=== PATIENT | male | born 1940 | race Caucasian/White ===

== ENCOUNTER 2019-02-03 16:14 | Inpatient (IN) | payer BC, MEDICARE ==
[~2019-02-03] VITALS: Ht 182.9 cm; Wt 85.7 kg
[~2019-02-03 16:14] MED LIST: ALPR1TAB2 PO; ASPI-1159 PO; CLOP75TA33 PO; COR3 PO; LOSA25TA12 PO; METO-396 PO; PRAV20TA57 PO; SPIR25TA6 PO; TAMS0.4C31 PO
[2019-02-03] MEDS ORDERED: SODIUM CHLORIDE 0.9% 1,000 ML IV ONE ×2 (18:19→20:00)
[2019-02-03 18:52] LABS: BASOPHILS % 0.2 % (0.0-2.0); EOSINOPHILS % 0.1 % (0.0-5.0); HEMATOCRIT. 41.9 % (42.0-52.0); LYMPHOCYTES % 8.9 % (20.0-50.0); MEAN CORPUSCULAR HEMOGLOBIN 31.8 pg (28.0-32.0); MEAN CORPUSCULAR VOLUME 94.8 fL (80.0-94.0); MEAN PLATELET VOLUME 8.8 fl (7.4-10.4); MONOCYTES % 6.2 % (2.0-8.0); NEUTROPHILS % 84.6 % (40.0-76.0); PLATELET 151 x1000/uL (130-400); RED BLOOD CELL COUNT 4.41 mill/uL (4.7-6.1); RED CELL DISTRIBUTION WIDTH 14.6 % (11.6-14.6)
[2019-02-03 18:55] LABS: CHLORIDE 107 mEq/L (98-107)
[2019-02-03 18:56] LABS: INR 1.2; PROTHROMBIN TIME 12.2 sec (9.1-11.1)
[2019-02-03 18:59] LABS: ETHANOL BLOOD < 10 mg/dL
[2019-02-03] MEDS ORDERED: APIXABAN 5 MG TABLET PO ONE (20:00)
[2019-02-03 20:50] LABS: CLARITY URINE CLEAR (CLEAR); COLOR URINE YELLOW (YELLOW); KETONES URINE NEGATIVE (NEGATIVE); LEUKOCYTE ESTERASE URINE NEGATIVE (NEGATIVE); NITRITE URINE NEGATIVE (NEGATIVE); OCCULT BLOOD URINE NEGATIVE (NEGATIVE); PROTEIN URINE TRACE (NEGATIVE); SPECIFIC GRAVITY URINE 1.016 (1.005-1.030)
[2019-02-03 20:54] LABS: *AMPHETAMINES SCREEN URINE NEGATIVE (NEGATIVE); *BARBITURATES SCREEN URINE NEGATIVE (NEGATIVE); *BENZODIAZEPINES SCREEN URINE PRESUMTIVE POSITIVE (NEGATIVE); *COCAINE SCREEN URINE NEGATIVE (NEGATIVE); METHADONE URINE SCREEN NEGATIVE (NEGATIVE)
[2019-02-03 20:55] LABS: CANNABINOID URINE SCREEN NEGATIVE (NEGATIVE); OPIATES URINE SCREEN NEGATIVE (NEGATIVE); PHENCYCLIDINE URINE SCREEN NEGATIVE (NEGATIVE)
[2019-02-03] MEDS ORDERED: ALPRAZOLAM 0.5 MG TABLET PO ONE (23:15)
[2019-02-04 08:20] VITALS: BP 105/69
[2019-02-04 12:00] VITALS: BP 91/59
[2019-02-04 16:00] VITALS: BP 90/57
[2019-02-04] MEDS ORDERED: MAGNESIUM/ALUMINUM HYDROXIDE/SIMETHICONE 30ML UDC PO PRN (17:15)
[2019-02-04] MEDS ORDERED: ONDANSETRON HCL 4MG/2ML INJ IV PRN (17:15)
[2019-02-04] MEDS ORDERED: IPRATROPIUM/ALBUTEROL 0.5-3(2.5)MG/3ML NEB INH PRN (17:15)
[2019-02-04] MEDS ORDERED: GUAIFENESIN 200MG/10ML SUGAR FREE UDC PO PRN (17:15)
[2019-02-04] MEDS ORDERED: ACETAMINOPHEN 325MG TABLET PO PRN (17:15)
[2019-02-04] MEDS ORDERED: DIPHENHYDRAMINE 50MG/ML VIAL IV PRN (17:15)
[2019-02-04] MEDS ORDERED: CLONIDINE 0.1MG TABLET PO PRN (17:15)
[2019-02-04] MEDS ORDERED: ENOXAPARIN 40MG/0.4ML SYR SUBCUT SCH (18:00)
[2019-02-04] MEDS ORDERED: APIX5TAB PO (18:43)
[2019-02-04] MEDS ORDERED: [UNRECOGNIZED DRUG - CODE] PO (18:43)
[2019-02-04] MEDS ORDERED: ALPRAZOLAM 0.5 MG TABLET PO PRN (18:45)
[2019-02-04 20:00] VITALS: BP 133/70
[2019-02-04] MEDS ORDERED: ATORVASTATIN CALCIUM 20MG TABLET PO SCH (21:00)
[2019-02-04] MEDS: SODIUM CHLORIDE 0.9% INJ 3ML FLUSH IVF SCH (21:30)
[2019-02-05] VITALS: BP 119/68
[2019-02-05 04:00] VITALS: BP 105/67
[2019-02-05] MEDS: SODIUM CHLORIDE 0.9% INJ 3ML FLUSH IVF SCH (05:15)
[2019-02-05 05:47] LABS: BASOPHILS % 0.5 % (0.0-2.0); EOSINOPHILS % 2.6 % (0.0-5.0); HEMATOCRIT. 35.7 % (42.0-52.0); LYMPHOCYTES % 31.8 % (20.0-50.0); MEAN CORPUSCULAR HEMOGLOBIN 32.1 pg (28.0-32.0); MEAN CORPUSCULAR VOLUME 95.5 fL (80.0-94.0); MEAN PLATELET VOLUME 9.1 fl (7.4-10.4); MONOCYTES % 11.8 % (2.0-8.0); NEUTROPHILS % 53.3 % (40.0-76.0); PLATELET 136 x1000/uL (130-400); RED BLOOD CELL COUNT 3.74 mill/uL (4.7-6.1); RED CELL DISTRIBUTION WIDTH 14.7 % (11.6-14.6)
[2019-02-05 05:59] LABS: CHLORIDE 110 mEq/L (98-107)
[2019-02-05 08:00] VITALS: BP 112/71
[2019-02-05] MEDS ORDERED: TAMSULOSIN HCL 0.4MG SR CAPSULE PO SCH (09:00)
[2019-02-05] MEDS ORDERED: CLOPIDOGREL 75MG TABLET PO SCH (09:00)
[2019-02-05] MEDS ORDERED: ASPIRIN 81MG EC TABLET PO SCH (09:00)
[2019-02-05] MEDS ORDERED: POTASSIUM CHLORIDE 20MEQ TABLET SR PO SCH ×2 (09:30→12:00)
[2019-02-05] MEDS ORDERED: LOSARTAN POTASSIUM 25 MG TABLET PO SCH (10:05)
[2019-02-05] MEDS ORDERED: METOPROLOL TARTRATE 25MG TABLET PO SCH (10:07)
[2019-02-05] MEDS ORDERED: SPIRONOLACTONE 25MG TABLET PO SCH (10:09)
[2019-02-05] MEDS ORDERED: APIXABAN 5 MG TABLET PO SCH (10:27)
[2019-02-05 12:40] VITALS: BP 112/71
[2019-02-05] MEDS ORDERED: LOSARTAN POTASSIUM PO SCH (17:00)
[2019-02-05] MEDS ORDERED: MEDICATION NOT ON FORMULARY EA (Apixaban (Eliquis) 5 MG) PO SCH (17:00)
[2019-02-05] MEDS ORDERED: ATORVASTATIN CALCIUM 10MG TABLET PO SCH (21:00)
[2019-02-05] MEDS ORDERED: ALPRAZOLAM PO SCH (21:00)
[2019-02-06] MEDS ORDERED: SPIRONOLACTONE PO SCH (09:00)
[2019-02-06] MEDS ORDERED: PRAVASTATIN SODIUM PO SCH (09:00)
[2019-02-06] MEDS ORDERED: MEDICATION NOT ON FORMULARY EA (Metoprolol Succinate 1 TAB) PO SCH (09:00)
== END 2019-02-05 14:58 | disposition home or self-care (01) | DRG 74 ==
LOC: ER 16:14 → 7WST 20:02 → EDBEDREQ 20:11 → ENRESERV 02-04 07:25
PROVIDERS: ADMIT Internal Medicine; ATTEND Internal Medicine
DX: G90.8 Other disorders of autonomic nervous system (principal); E78.00 Pure hypercholesterolemia, unspecified; E78.5 Hyperlipidemia, unspecified; I25.5 Ischemic cardiomyopathy; I25.10 Atherosclerotic heart disease of native coronary artery without angina pectoris; I95.9 Hypotension, unspecified; Z95.810 Presence of automatic (implantable) cardiac defibrillator; R73.03 Prediabetes; E87.6 Hypokalemia; N40.0 Benign prostatic hyperplasia without lower urinary tract symptoms; G89.29 Other chronic pain; M54.9 Dorsalgia, unspecified; F17.200 Nicotine dependence, unspecified, uncomplicated; F41.9 Anxiety disorder, unspecified; I11.9 Hypertensive heart disease without heart failure; I25.2 Old myocardial infarction; Z79.01 Long term (current) use of anticoagulants; Z79.02 Long term (current) use of antithrombotics/antiplatelets; Z79.82 Long term (current) use of aspirin; Z79.899 Other long term (current) drug therapy; Z80.9 Family history of malignant neoplasm, unspecified; Z82.3 Family history of stroke; Z87.442 Personal history of urinary calculi; Z95.1 Presence of aortocoronary bypass graft
CPT/HCPCS: 36415; 71045; 80048; 80305; 80320; 83036; 84484; 93005; 93306; 96360; 96361; 99291; J1650; J7030; G0480

== ENCOUNTER 2019-07-27 22:01 | Emergency (ER) | payer BC ==
[~2019-07-27] VITALS: Ht 175.3 cm; Wt 75.0 kg
[~2019-07-27 22:01] MED LIST changes: +APIX5TAB PO; -ASPI-1159 PO; -CLOP75TA33 PO; -COR3 PO; -LOSA25TA12 PO; +LOSA25TA26 PO; -TAMS0.4C31 PO; +[UNRECOGNIZED DRUG - CODE] PO
[2019-07-27] MEDS ORDERED: SODIUM CHLORIDE 0.9% 1,000 ML IV ONE (22:34)
[2019-07-27] MEDS ORDERED: LEVETIRACETAM 500MG PREMIX 100 ML IV ONE (22:45)
[2019-07-27 23:06] LABS: BASOPHILS % 0.4 % (0.0-2.0); EOSINOPHILS % 1.4 % (0.0-5.0); HEMATOCRIT. 42.8 % (42.0-52.0); HEMOGLOBIN. 14.3 g/dL (14.0-18.0); LYMPHOCYTES % 8.8 % (20.0-50.0); MEAN CORPUSCULAR HEMOGLOBIN 32.1 pg (28.0-32.0); MEAN CORPUSCULAR VOLUME 95.8 fL (80.0-94.0); MEAN PLATELET VOLUME 8.5 fl (7.4-10.4); MONOCYTES % 7.7 % (2.0-8.0); NEUTROPHILS % 81.7 % (40.0-76.0); PLATELET 176 x1000/uL (130-400); RED BLOOD CELL COUNT 4.47 mill/uL (4.7-6.1); RED CELL DISTRIBUTION WIDTH 13.9 % (11.6-14.6)
[2019-07-27 23:10] LABS: CHLORIDE 105 mEq/L (98-107)
[2019-07-28 01:07] VITALS: BP 133/67
== END 2019-07-28 01:55 | disposition home or self-care (01) ==
LOC: ER 22:01
DX: R56.9 Unspecified convulsions (principal); I11.9 Hypertensive heart disease without heart failure; Z95.0 Presence of cardiac pacemaker
CPT/HCPCS: 36415; 70450; 80053; 85025; 96365; 99284; J1953; J7030

== ENCOUNTER 2022-08-22 11:38 | Inpatient (IN) | payer MEDICARE, MEDICAID ==
[~2022-08-22] VITALS: Ht 182.9 cm; Wt 70.8 kg
[2022-08-22 12:32] LABS: BASOPHILS % 0.4 % (0.0-2.0); EOSINOPHILS % 0.5 % (0.0-5.0); HEMATOCRIT. 43.3 % (42.0-52.0); HEMOGLOBIN. 14.5 g/dL (14.0-18.0); LYMPHOCYTES % 16.9 % (20.0-50.0); MEAN CORPUSCULAR HEMOGLOBIN 31.9 pg (28.0-32.0); MEAN CORPUSCULAR VOLUME 95.1 fL (80.0-94.0); MEAN PLATELET VOLUME 9.4 fl (7.4-10.4); MONOCYTES % 8.6 % (2.0-8.0); NEUTROPHILS % 73.6 % (40.0-76.0); PLATELET 180 x1000/uL (130-400); RED BLOOD CELL COUNT 4.56 mill/uL (4.7-6.1); RED CELL DISTRIBUTION WIDTH 14.9 % (11.6-14.6)
[2022-08-22 12:38] LABS: CHLORIDE 102 mEq/L (98-107)
[2022-08-22 12:54] LABS: ETHANOL BLOOD < 10 mg/dL
[2022-08-22] MEDS ORDERED: LEVETIRACETAM 1000MG PREMIX 100 ML IV ONE (13:00)
[2022-08-22] MEDS ORDERED: CEFTRIAXONE 1 G PREMIX 50 ML IV ONE (14:45)
[2022-08-22] MEDS ORDERED: AZITHROMYCIN 500MG/250ML 250 ML IV ONE (14:45)
[2022-08-22 21:26] LABS: CLARITY URINE CLEAR (CLEAR); COLOR URINE YELLOW (YELLOW); KETONES URINE TRACE (NEGATIVE); LEUKOCYTE ESTERASE URINE NEGATIVE (NEGATIVE); NITRITE URINE NEGATIVE (NEGATIVE); OCCULT BLOOD URINE NEGATIVE (NEGATIVE); PROTEIN URINE 1+ (NEGATIVE); UROBILINOGEN URINE 0.2 E.U./dL (0.2-1.0)
[2022-08-22 23:00] VITALS: BP 94/49
[2022-08-23] VITALS: BP 91/48
[2022-08-23] MEDS ORDERED: TAMS-11 PO (00:17)
[2022-08-23] MEDS ORDERED: TRAZ-251 PO (00:17)
[2022-08-23] MEDS ORDERED: MIRT-89 PO (00:17)
[2022-08-23 04:29] VITALS: BP 103/66
[2022-08-23] MEDS ORDERED: INFLUENZA VACCINE 05/PF 0.5 ML SYRINGE IM ONE (06:30)
[2022-08-23 07:52] LABS: HEMATOCRIT 37.5 % (42.0-52.0); HEMOGLOBIN 12.8 g/dL (14.0-18.0); MEAN CORPUSCULAR HEMOGLOBIN 32.3 pg (28.0-32.0); MEAN CORPUSCULAR VOLUME 94.8 fL (80.0-94.0); PLATELET 153 x1000/uL (130-400); RED BLOOD CELL COUNT 3.96 mill/uL (4.7-6.1); RED CELL DISTRIBUTION WIDTH 14.9 % (11.6-14.6)
[2022-08-23 08:00] VITALS: BP 124/62
[2022-08-23] MEDS: APIXABAN 5 MG TABLET PO SCH ×2 (10:16→17:27)
[2022-08-23] MEDS: TAMSULOSIN HCL 0.4MG SR CAPSULE PO SCH (10:16)
[2022-08-23] MEDS: POTASSIUM CHLORIDE 20MEQ TABLET SR PO SCH (10:16)
[2022-08-23] MEDS: LEVETIRACETAM 500MG PREMIX 100 ML IV SCH ×2 (10:17→21:57)
[2022-08-23] MEDS: FUROSEMIDE 40MG/4ML VIAL IVP SCH (10:19)
[2022-08-23 12:00] VITALS: BP 116/68
[2022-08-23 14:12] LABS: T4 FREE 1.03 ng/dL (0.76-1.46)
[2022-08-23 16:00] VITALS: BP 122/80
[2022-08-23 20:00] VITALS: BP 102/71
[2022-08-23] MEDS ORDERED: CITA10SO PO (20:20)
[2022-08-23] MEDS ORDERED: FINA1TAB18 PO (20:20)
[2022-08-23] MEDS: TRAZODONE HCL 50MG TABLET PO SCH (21:58)
[2022-08-24] VITALS (7 sets, daily range): BP systolic 101–148; BP diastolic 57–83
[2022-08-24 08:16] LABS: BASOPHILS % 0.6 % (0.0-2.0); EOSINOPHILS % 2.8 % (0.0-5.0); HEMATOCRIT. 38.3 % (42.0-52.0); MEAN CORPUSCULAR HEMOGLOBIN 32.3 pg (28.0-32.0); MEAN CORPUSCULAR VOLUME 95.3 fL (80.0-94.0); MEAN PLATELET VOLUME 9.6 fl (7.4-10.4); MONOCYTES % 13.1 % (2.0-8.0); NEUTROPHILS % 62.5 % (40.0-76.0); PLATELET 141 x1000/uL (130-400); RED BLOOD CELL COUNT 4.02 mill/uL (4.7-6.1)
[2022-08-24] MEDS: TAMSULOSIN HCL 0.4MG SR CAPSULE PO SCH (09:46)
[2022-08-24] MEDS: FUROSEMIDE 40MG/4ML VIAL IVP SCH (09:46)
[2022-08-24] MEDS: APIXABAN 5 MG TABLET PO SCH ×2 (09:46→17:45)
[2022-08-24] MEDS: POTASSIUM CHLORIDE 20MEQ TABLET SR PO SCH (09:46)
[2022-08-24] MEDS: LEVETIRACETAM 500MG PREMIX 100 ML IV SCH ×2 (09:47→21:35)
[2022-08-24] MEDS ORDERED: MAGNESIUM 2 G PREMIX 50 ML IV NR (12:00)
[2022-08-24] MEDS: MAGNESIUM OXIDE 400MG TABLET PO SCH (12:58)
[2022-08-24] MEDS ORDERED: KEPP500 MT (13:11)
[2022-08-24] MEDS: TRAZODONE HCL 50MG TABLET PO SCH (21:34)
[2022-08-25] VITALS: BP 121/71
[2022-08-25 04:00] VITALS: BP 96/57
[2022-08-25 07:14] LABS: BASOPHILS % 0.5 % (0.0-2.0); EOSINOPHILS % 3.4 % (0.0-5.0); HEMATOCRIT. 41.3 % (42.0-52.0); HEMOGLOBIN. 13.9 g/dL (14.0-18.0); LYMPHOCYTES % 23.4 % (20.0-50.0); MEAN CORPUSCULAR HEMOGLOBIN 31.8 pg (28.0-32.0); MEAN CORPUSCULAR VOLUME 94.8 fL (80.0-94.0); MEAN PLATELET VOLUME 9.6 fl (7.4-10.4); MONOCYTES % 11.8 % (2.0-8.0); NEUTROPHILS % 60.9 % (40.0-76.0); PLATELET 159 x1000/uL (130-400); RED BLOOD CELL COUNT 4.36 mill/uL (4.7-6.1); RED CELL DISTRIBUTION WIDTH 14.8 % (11.6-14.6)
[2022-08-25 08:00] VITALS: BP 110/70
[2022-08-25] MEDS: FUROSEMIDE 40MG/4ML VIAL IVP SCH (09:56)
[2022-08-25] MEDS: TAMSULOSIN HCL 0.4MG SR CAPSULE PO SCH (09:56)
[2022-08-25] MEDS: MAGNESIUM OXIDE 400MG TABLET PO SCH (09:56)
[2022-08-25] MEDS: POTASSIUM CHLORIDE 20MEQ TABLET SR PO SCH (09:56)
[2022-08-25] MEDS: LEVETIRACETAM 500MG PREMIX 100 ML IV SCH ×2 (09:57→20:29)
[2022-08-25] MEDS: APIXABAN 5 MG TABLET PO SCH (09:58)
[2022-08-25 12:00] VITALS: BP 120/75
[2022-08-25 16:00] VITALS: BP 138/72
[2022-08-25 19:36] LABS: INR 1.2; PROTHROMBIN TIME 12.3 sec (9.6-11.0)
[2022-08-25 20:00] VITALS: BP 112/79
[2022-08-25] MEDS: TRAZODONE HCL 50MG TABLET PO SCH (20:29)
[2022-08-25] MEDS ORDERED: ATORVASTATIN CALCIUM 10MG TABLET PO SCH ×2 (21:00)
[2022-08-26] VITALS: BP 120/75
[2022-08-26 04:00] VITALS: BP 123/62
[2022-08-26 08:00] VITALS: BP 117/63
[2022-08-26] MEDS ORDERED: LEVETIRACETAM 500MG TABLET PO SCH (09:00)
[2022-08-26] MEDS: TAMSULOSIN HCL 0.4MG SR CAPSULE PO SCH (09:29)
[2022-08-26] MEDS: POTASSIUM CHLORIDE 20MEQ TABLET SR PO SCH (09:29)
[2022-08-26] MEDS: MAGNESIUM OXIDE 400MG TABLET PO SCH (09:30)
[2022-08-26] MEDS: FUROSEMIDE 40MG/4ML VIAL IVP SCH (09:30)
[2022-08-26 12:00] VITALS: BP 121/69
[2022-08-26 16:00] VITALS: BP 110/60
[2022-08-26] MEDS ORDERED: LEVOFLOXACIN 500MG PREMIX 100 ML IV SCH (16:00)
[2022-08-26 17:27] VITALS: BP 110/60
[2022-08-26 17:37] LABS: BASOPHILS % 0.5 % (0.0-2.0); EOSINOPHILS % 2.8 % (0.0-5.0); HEMOGLOBIN. 14.7 g/dL (14.0-18.0); LYMPHOCYTES % 18.9 % (20.0-50.0); MEAN CORPUSCULAR HEMOGLOBIN 32.3 pg (28.0-32.0); MEAN CORPUSCULAR VOLUME 94.8 fL (80.0-94.0); MEAN PLATELET VOLUME 9.3 fl (7.4-10.4); MONOCYTES % 10.6 % (2.0-8.0); NEUTROPHILS % 67.2 % (40.0-76.0); PLATELET 162 x1000/uL (130-400); RED BLOOD CELL COUNT 4.54 mill/uL (4.7-6.1); RED CELL DISTRIBUTION WIDTH 14.7 % (11.6-14.6)
[2022-08-26 18:03] LABS: CHLORIDE 103 mEq/L (98-107)
[2022-08-27] MEDS ORDERED: LEVOFLOXACIN 250MG PREMIX 50 ML IV SCH (16:00)
== END 2022-08-26 19:00 | disposition home or self-care (01) | DRG 100 ==
LOC: ER 11:53 → 6WST 17:05 → ENRESERV 20:17
PROVIDERS: ADMIT Internal Medicine; ATTEND Internal Medicine
PROC: 4A00X4Z Measurement of Central Nervous Electrical Activity, External Approach (ICD-10-PCS; principal; 2022-08-25)
DX: G40.409 Other generalized epilepsy and epileptic syndromes, not intractable, without status epilepticus (principal); J18.9 Pneumonia, unspecified organism; J90 Pleural effusion, not elsewhere classified; G93.40 Encephalopathy, unspecified; G90.9 Disorder of the autonomic nervous system, unspecified; I25.10 Atherosclerotic heart disease of native coronary artery without angina pectoris; I25.5 Ischemic cardiomyopathy; N40.0 Benign prostatic hyperplasia without lower urinary tract symptoms; E87.6 Hypokalemia; F41.9 Anxiety disorder, unspecified; E78.5 Hyperlipidemia, unspecified; I11.9 Hypertensive heart disease without heart failure; Z86.73 Personal history of transient ischemic attack (TIA), and cerebral infarction without residual deficits; Z95.810 Presence of automatic (implantable) cardiac defibrillator; Z95.1 Presence of aortocoronary bypass graft; I25.2 Old myocardial infarction
CPT/HCPCS: 36415; 71045; 71250; 80048; 80053; 80061; 80320; 81003; 82962; 83605; 83735; 83880; 84439; 84443; 84484; 85025; 85027; 87426; 90686; 93005; 93306; 95816; 99291; C9803; J0456; J0696; J1940; J1953; J1956; J3475; G0480